=== PATIENT | female | born 1990 | race African-American/Black ===

== ENCOUNTER 2022-10-27 11:49 | Emergency (ER) | payer OTHER ==
[2022-10-27 11:55] VITALS: BP 101/53; PULSE 88; RESP 18; TEMP 98; BMI 23.6
[2022-10-27] MEDS ORDERED: LIDOCAINE 5% TOPICAL PATCH TP ONE (13:09)
[2022-10-27] MEDS ORDERED: KETOROLAC TROMETHAMINE 30 MG/1 ML VIAL IM ONE (13:10)
[2022-10-27] MEDS ORDERED: LIDOCAINE 5% TOPICAL PATCH ONE (13:11)
[2022-10-27] MEDS ORDERED: KETOROLAC TROMETHAMINE 30 MG/1 ML VIAL ONE (13:17)
[2022-10-27 13:54] LABS: EPI CELLS 25 /uL (0-25.1); HYALINE CASTS 5 /uL (0-3.1); URINE APPEARANCE CLOUDY; URINE BACTERIA >9,000 /uL (0-1359); URINE BILIRUBIN NEGATIVE (NEGATIVE); URINE COLOR YELLOW; URINE GLUCOSE (UA) NEGATIVE (NEGATIVE); URINE KETONE TRACE (NEGATIVE); URINE LEUK ESTERASE 1+ (NEGATIVE); URINE NITRITE POSITIVE (NEGATIVE); URINE PROTEIN NEGATIVE (NEGATIVE); URINE RBC 26 /uL (0-23.9); URINE WBC 299 /uL (0-25.8)
[2022-10-27] MEDS ORDERED: LIDOCAINE PATCH REMOVAL MC SCH (22:00)
== END 2022-10-27 15:27 | disposition home or self-care (01) ==
LOC: JERFT 11:49
PROC: 3E0233Z Introduction of Anti-inflammatory into Muscle, Percutaneous Approach (ICD-10-PCS; principal; 2022-10-27)
DX: M54.9 Dorsalgia, unspecified (principal); N39.0 Urinary tract infection, site not specified
CPT/HCPCS: 36415; 81003; 84703; 87086; 87186; 87491; 87591; 99284-25